=== PATIENT | male | born 1960 | race Hispanic/Latino ===

== ENCOUNTER 2024-08-23 08:35 | Day surgery (SDC) | payer OTHER ==
[~2024-08-23] VITALS: Ht 180.3 cm; Wt 95.3 kg
[~2024-08-23 08:35] MED LIST: AMLODIPINE BESY10 MG PO; ATORVASTATIN CA10 MG PO; AUGMENTIN875TAB PO; AZITHROMYCIN500 MG OR; COUGH DROPS5 MG; DILAUDID 2MG2 MG/TA1 OR; DILAUDID2 MG PO; EC-NAPROXEN500 MG PO; FLUARIX QUADRIV1 INJ IM; FLUZONE SPLT1 M1 IM; HYDROCHLOROT25 MG PO; JARDIANCE25 MG PO; KEFLEX500 MG PO; LISINOPRIL5 MG PO; LOSARTAN/HCT1 TA2 PO; LOVASTATIN20 M1 PO; METFORMIN HCL1000 MG PO; METFORMIN500 MG PO; NAPROSYN500 MG PO; POLYTRIM OU; PRAVASTATIN10 MG PO; ROBITUSS11; ROBITUSSIN AC10 ML PO; SORE THROAT; TENORMIN50 MG PO; TET/DIP TOX1 ML IM; VIAGRA100 MG PO; [UNRECOGNIZED DRUG - OTHER]
[2024-08-23] MEDS ORDERED: SODIUM CHLORIDE 0.9% 1,000 ML IV ONE (08:49)
[2024-08-23 10:55] VITALS: BP 134/91
[2024-08-23] MEDS ORDERED: PROPOFOL 200 MG/20 ML VIAL IV ONE (13:26)
[2024-08-23] MEDS ORDERED: GLYCOPYRROLATE 0.2 MG/ML IV ONE (13:26)
[2024-08-23] MEDS ORDERED: LIDOCAINE HCL 2% 2ML SDV IV ONE (13:26)
== END 2024-08-23 10:48 | disposition home or self-care (01) ==
LOC: ENDO 08:35 → ORM 09:00 → ENDO 10:25
PROVIDERS: ATTEND Surgery
DX: Z12.11 Encounter for screening for malignant neoplasm of colon (principal); D12.2 Benign neoplasm of ascending colon; D12.0 Benign neoplasm of cecum; K57.30 Diverticulosis of large intestine without perforation or abscess without bleeding; K64.8 Other hemorrhoids; I10 Essential (primary) hypertension; E11.9 Type 2 diabetes mellitus without complications; Z79.84 Long term (current) use of oral hypoglycemic drugs; Z86.0100 Personal history of colon polyps, unspecified
CPT/HCPCS: J1596